=== PATIENT | male | born 1950 | race Caucasian/White ===

== ENCOUNTER 2021-02-01 17:57 | Inpatient (IN) | payer MEDICARE ==
[~2021-02-01] VITALS: Ht 160 cm; Wt 48.3 kg
[2021-02-01] MEDS ORDERED: LIDOcaine 2% 10ml TOPICAL JELLY (Urojet) MM ONE (19:15)
[2021-02-01] MEDS ORDERED: CefTRIAXone 2gm/D5W 50ml BAG 50 ML IV ONE (19:40)
--- NOTE | 2021-02-01 19:47 | NUR ---
Pt catheterized for urinary retention with 14 mongolian coude hayden, draining to gravity. Urojet used for comfort but provided minimal relief. Hayden advance with some resistance but no difficulty. Pt states he still has pain of 7/10 with pain from the tip of his penis up his urethra to the bladder. Urine is brown and cloudy.
[2021-02-01 20:08] LABS: CLARITY,URINE CLOUDY (Clear); COLOR,URINE BROWN (Yellow); GLUCOSE, URINE NEGATIVE (Neg); KETONES,URINE NEGATIVE (Neg); LEUKOCYTE ESTERASE ,URINE MODERATE (Neg); NITRITES, URINE NEGATIVE (Neg); OCCULT BLOOD,URINE LARGE (Neg); PROTEIN,URINE 100 mg/dl (Neg)
[2021-02-01 20:09] LABS: UA COLLECTION TYPE FOLEY CATH
[2021-02-01 20:17] LABS: BASOPHILS # (AUTO) 0.1 X10'3 (0-0.2); BASOPHILS % (AUTO) 0.8 % (0-1); EOSINOPHILS # (AUTO) 0.1 X10'3 (0-0.9); EOSINOPHILS % (AUTO) 0.7 % (0-6); HEMOGLOBIN 14.5 g/dl (14.0-17.9); LYMPHOCYTES # (AUTO) 1.8 X10'3 (1.1-4.8); LYMPHOCYTES % (AUTO) 16.8 % (21-51); MEAN CORPUSCULAR HEMOGLOBIN 31.6 PG (27.0-31.0); MEAN CORPUSCULAR HGB CONC 34.4 g/dL (33.0-36.5); MEAN CORPUSCULAR VOLUME 91.7 FL (78-98); MEAN PLATELET VOLUME 7.2 FL (7.4-10.4); MONOCYTES # (AUTO) 1.2 X10'3 (0-0.9); MONOCYTES % (AUTO) 11.4 % (2-12); NEUTROPHILS # (AUTO) 7.5 X10'3 (1.8-7.7); NEUTROPHILS % (AUTO) 70.3 % (42-75); PLATELET COUNT 366 X10'3 (140-440); RED BLOOD COUNT 4.58 X10'6 (4.70-6.10); RED CELL DISTRIBUTION WIDTH 12.7 % (11.5-14.5); WHITE BLOOD COUNT 10.6 X10'3 (4.5-11.0)
[2021-02-01 20:20] LABS: BACTERIA,URINE 3+ /HPF (Neg); MUCUS STRANDS NONE SEEN /LPF (Neg); RBC,URINE TNTC /HPF (0-2); SQUAMOUS EPITHELIAL CELL,UR NONE SEEN /LPF (FEW); WBC,URINE 30-50 /HPF (0-4)
[2021-02-01 20:25] LABS: ALANINE AMINOTRANSFERASE 15 U/L (12-78); ALBUMIN 3.3 G/DL (3.4-5.0); ALBUMIN/GLOBULIN RATIO 0.9 (1.1-1.5); ALKALINE PHOSPHATASE 110 IU/L (46-116); ANION GAP 8 (8-16); ASPARTATE AMINO TRANSFERASE 9 U/L (10-37); BILIRUBIN,TOTAL 0.5 MG/DL (0.1-1.0); BLOOD UREA NITROGEN 15 MG/DL (7-18); BUN/CREATININE RATIO 16.7 (5.4-32.0); CALCIUM 10.2 MG/DL (8.5-10.1); CHLORIDE 102 MMOL/L (99-107); GLUCOSE 110 MG/DL (70-104); MAGNESIUM 2.4 MG/DL (1.5-2.4); SODIUM 137 MMOL/L (135-145); TOTAL CARBON DIOXIDE 27.3 MMOL/L (24-32); TOTAL PROTEIN 7.1 G/DL (6.4-8.2); eGFR 83 ML/MIN
[2021-02-01] MEDS ORDERED: morphine 4 MG/ML inj SYRINge IV ONE (20:30)
[2021-02-01] MEDS ORDERED: ondansetron/PF 4mg/2ml inj IV ONE (20:30)
[2021-02-01] MEDS ORDERED: normal saline 1000ML IV soln IVB ONE (20:50)
[2021-02-01] MEDS ORDERED: phenazopyridine 100mg tablet PO ONE (21:10)
[2021-02-01] MEDS ORDERED: iohexol 300mg/ml 100ml inj. ONE (21:12)
[2021-02-01] MEDS ORDERED: magnesium hydroxide 30ml (MOM) UD suspension PO PRN (22:10)
[2021-02-01] MEDS ORDERED: morphine 2 MG/ML inj. syringe IV PRN ×2 (22:10)
[2021-02-01] MEDS ORDERED: ondansetron/PF 4mg/2ml inj IV PRN (22:10)
[2021-02-01] MEDS ORDERED: HYDROcodone/acetaminophen 5mg/325mg tablet PO PRN (22:10)
[2021-02-01] MEDS ORDERED: acetaminophen 325mg tablet PO PRN ×2 (22:10)
[2021-02-01] MEDS ORDERED: mag hydrox/Alum hydrox/simeth 30ml oral suspension PO PRN (22:10)
--- NOTE | 2021-02-01 22:42 | NUR ---
Received report from [employer] MACHINE OPERATORJONY Abebe. Patient to follow shortly.
--- NOTE | 2021-02-01 22:55 | NUR ---
Patient arrived to floor via gurney. Pt scooted over into his bed. A&Ox4, requesting pain medication.
[2021-02-01 23:15] VITALS: BP 151/84
[2021-02-02] MEDS: HYDROcodone/acetaminophen 10/325mg tab PO PRN ×2 (00:24→06:58)
[2021-02-02 04:22] VITALS: BP 98/69
[2021-02-02 06:38] LABS: ALBUMIN 2.4 G/DL (3.4-5.0); ANION GAP 6 (8-16); BLOOD UREA NITROGEN 15 MG/DL (7-18); BUN/CREATININE RATIO 16.9 (5.4-32.0); CALCIUM 9.3 MG/DL (8.5-10.1); CHLORIDE 105 MMOL/L (99-107); CREATININE 0.89 MG/DL (0.60-1.10); GLUCOSE 96 MG/DL (70-104); SODIUM 139 MMOL/L (135-145); TOTAL CARBON DIOXIDE 27.7 MMOL/L (24-32); eGFR 84 ML/MIN
--- NOTE | 2021-02-02 06:46 | NUR ---
Problems reprioritized. Patient report given, questions answered & plan of care reviewed with Kassie BORGES.
[2021-02-02 06:53] VITALS: BP 104/50
[2021-02-02 06:53] LABS: BASOPHILS # (AUTO) 0.1 X10'3 (0-0.2); BASOPHILS % (AUTO) 1.1 % (0-1); EOSINOPHILS # (AUTO) 0.2 X10'3 (0-0.9); EOSINOPHILS % (AUTO) 2.6 % (0-6); HEMATOCRIT 37.6 % (42.0-52.0); HEMOGLOBIN 12.9 g/dl (14.0-17.9); LYMPHOCYTES # (AUTO) 1.7 X10'3 (1.1-4.8); LYMPHOCYTES % (AUTO) 20.4 % (21-51); MEAN CORPUSCULAR HEMOGLOBIN 31.7 PG (27.0-31.0); MEAN CORPUSCULAR HGB CONC 34.3 g/dL (33.0-36.5); MEAN CORPUSCULAR VOLUME 92.5 FL (78-98); MEAN PLATELET VOLUME 7.6 FL (7.4-10.4); MONOCYTES # (AUTO) 1.2 X10'3 (0-0.9); MONOCYTES % (AUTO) 14.2 % (2-12); NEUTROPHILS # (AUTO) 5.1 X10'3 (1.8-7.7); NEUTROPHILS % (AUTO) 61.7 % (42-75); PLATELET COUNT 322 X10'3 (140-440); RED BLOOD COUNT 4.06 X10'6 (4.70-6.10); RED CELL DISTRIBUTION WIDTH 12.6 % (11.5-14.5); WHITE BLOOD COUNT 8.2 X10'3 (4.5-11.0)
[2021-02-02 11:00] VITALS: BP 126/67
[2021-02-02] MEDS ORDERED: tamsulosin 0.4mg capsule PO ONE (11:55)
[2021-02-02] MEDS ORDERED: CEFD300C3 PO (11:58)
[2021-02-02] MEDS ORDERED: tamsulosin capsule PO (11:58)
[2021-02-02] MEDS ORDERED: FLO0.4C PO (11:58)
--- NOTE | 2021-02-02 12:48 | NUR ---
Malnutrition Consult: Pt BMI 18.9 pending scaled wt this admit, normal strength, no edema/wounds present, and appears well-developed/well-nourished per ER note. Pt PO 100% first regular diet meal as well as no prior wt hx and does not meet minimum malnutrition criteria at this time. Addendum: 02/02/21 at [address] Amended: Links added.
--- NOTE | 2021-02-02 13:19 | NUR ---
Pt discharged home to [place] with caregiver/friend Miguelina with approval of Dr Mc who will follow pt for outpatient services. Per Dr Mc her office will call patient to set up appt for 1-2 weeks out. Medications sent to preferred pharmacy they will picker operator on way home. IV taken out. No current concerns. Pt given 2x leg bag and an overnight bag with thorough instruction on use. Pt and friend state they understand instruction.
[2021-02-02] MEDS ORDERED: CefTRIAXone/D5W-Rocephin 1gm 50 ML IV SCH (19:00)
[2021-02-02] MEDS ORDERED: lactobacillus rhamnosus 10,000 MMU CELLS/CAPSULE PO SCH (20:00)
[2021-02-02] MEDS ORDERED: tamsulosin 0.4mg capsule PO SCH (21:00)
== END 2021-02-02 13:15 | disposition home or self-care (01) | DRG 690 ==
LOC: ER 17:59 → ED HOLD 22:10 → SUR 3N 22:59
PROVIDERS: ADMIT Internal Medicine; ATTEND Family Medicine
PROC: 0T9B70Z Drainage of Bladder with Drainage Device, Via Natural or Artificial Opening (ICD-10-PCS; principal; 2021-02-01)
DX: N39.0 Urinary tract infection, site not specified (principal); N40.1 Benign prostatic hyperplasia with lower urinary tract symptoms; N13.8 Other obstructive and reflux uropathy; Z66 Do not resuscitate; F17.210 Nicotine dependence, cigarettes, uncomplicated; I10 Essential (primary) hypertension; J44.9 Chronic obstructive pulmonary disease, unspecified; N20.0 Calculus of kidney; R33.8 Other retention of urine; R39.12 Poor urinary stream; R31.0 Gross hematuria; Z80.9 Family history of malignant neoplasm, unspecified; Z87.440 Personal history of urinary (tract) infections; Z90.79 Acquired absence of other genital organ(s)
CPT/HCPCS: 36415; 71045; 74177; 80048; 80053; 81001; 83605; 83735; 84145; 85025; 87040; 87077; 87081; 87088; 87186; 93005; 96365; 96375; 99285; G0378; J0696; J2270; J2405; J7030; Q9967